=== PATIENT | male | born 1985 | race African-American/Black ===

== ENCOUNTER 2018-04-13 02:18 | Emergency (ER) | payer BC, OTHER | END 2018-04-13 03:20 | disposition home or self-care (01) | LOC: ERS 02:18 | DX: L23.5 Allergic contact dermatitis due to other chemical products (principal); B20 Human immunodeficiency virus [HIV] disease; I10 Essential (primary) hypertension; Z79.899 Other long term (current) drug therapy | CPT/HCPCS: 99282 ==

== ENCOUNTER 2019-06-05 13:25 | Emergency (ER) | payer BC, OTHER ==
[2019-06-05] MEDS ORDERED: Meclizine HCl 25 MG TAB ONE ×2 (15:46→16:10)
--- NOTE | 2019-06-05 17:11 | CT ---
CT BRAIN WITHOUT CONTRAST: Date: 06/05/19 HISTORY: Dizziness. FINDINGS: No evidence of infarct, hemorrhage, midline shift, or abnormal extra-axial fluid collections are seen . The ventricular size is normal and the basilar cisterns are patent. The bony calvarium is intact. T he visualized paranasal sinuses and mastoid air cells are well aerated. IMPRESSION: No CT evidence of acute intracranial process. POS: OFF
== END 2019-06-05 16:24 | disposition home or self-care (01) ==
LOC: ERS 13:25
DX: R42 Dizziness and giddiness (principal); B20 Human immunodeficiency virus [HIV] disease; I10 Essential (primary) hypertension; G43.909 Migraine, unspecified, not intractable, without status migrainosus; Z79.899 Other long term (current) drug therapy
CPT/HCPCS: 70450; J8597

== ENCOUNTER 2019-08-02 16:24 | Emergency (ER) | payer OTHER ==
[2019-08-02] MEDS ORDERED: Metoclopramide HCl 10 MG/2 ML VIAL ONE (17:45)
[2019-08-02] MEDS ORDERED: Ketorolac Tromethamine 30 MG/ML VIAL ONE (17:45)
[2019-08-02] MEDS ORDERED: diphenhydrAMINE 50 MG/ML VIAL ONE (17:45)
[2019-08-02] MEDS ORDERED: Ondansetron PF 4 MG/2 ML Vial ONE (19:06)
[2019-08-02] MEDS ORDERED: Magnesium 2 GM/50 ML BAG (IN WATER) ONE (19:35)
[2019-08-02] MEDS ORDERED: methylPREDNISolone Sod Succ/PF 125 MG/2 ML VIAL ONE (19:35)
--- NOTE | 2019-08-02 19:37 | CT ---
Exam: Head CT without contrast HISTORY: Headache. Nausea. COMPARISON: 06/05/2019 FINDINGS: Hemorrhage: No intraparenchymal hemorrhage or extra-axial hematoma. Brain parenchyma: Cortical davis-white matter differentiation is preserved. No mass effect or midline shift. Basilar cisterns are patent. Ventricular system: Ventricles and sulci are patent and symmetric. Calvarium: Intact. Sinuses and mastoid air cells: Adequate aeration. IMPRESSION: No acute intracranial process.
== END 2019-08-02 20:56 | disposition home or self-care (01) ==
LOC: ERS 16:24
DX: G43.909 Migraine, unspecified, not intractable, without status migrainosus (principal); B20 Human immunodeficiency virus [HIV] disease; I10 Essential (primary) hypertension
CPT/HCPCS: 70450; 96365; 96367; 96375; J1200; J1885; J2405; J2765; J2930; J3475

== ENCOUNTER 2019-11-01 14:28 | Emergency (ER) | payer OTHER ==
[2019-11-01] MEDS ORDERED: Bicillin LA 1.2 MILLION UNITS/2 ML SYRINGE ONE (16:40)
[2019-11-01] MEDS ORDERED: predniSONE 20 MG TAB ONE (16:40)
== END 2019-11-01 18:50 | disposition home or self-care (01) ==
LOC: ERS 14:28
DX: J02.0 Streptococcal pharyngitis (principal)
CPT/HCPCS: 87430; 96372; 99283; J0561; J7512